=== PATIENT | male | born 1990 | race Caucasian/White ===

== ENCOUNTER 2023-03-07 01:59 | Emergency (ER) | payer MEDICAID, SELFPAY ==
[2023-03-07 02:05] VITALS: BP 132/78; PULSE 98; RESP 18; TEMP 36.7; O2SAT 99; BMI 28.0
--- NOTE | 2023-03-07 02:13 | CRLHL7_ITS ---
For Patients: As a result of the Cures Act, medical imaging exams and procedure reports are released immediately into your electronic medical record. You may view this report before your referring provider. If you have questions, please contact your health care provider. INDICATION: Shoulder pain for 2 days, injury, pain for 2 days, thinks dislocated TECHNIQUE: Shoulder radiograph 3 views right COMPARISON: None FINDINGS: Bone: No acute fractures or aggressive bone lesions are identified. Joint: The glenohumeral joint is unremarkable. The acromioclavicular joint is unremarkable. Soft tissue: Unremarkable. The visualized hemithorax is unremarkable in appearance. No radiopaque foreign bodies are seen. IMPRESSION: 1. No acute osseous injuries or abnormalities are noted. Dictated by: Geovany Bryson MD @ 03/07/2023 02:31:57 (Electronically Signed)
--- NOTE | 2023-03-07 02:15 | ED_ITS ---
HPI - General Adult General Chief complaint: Shoulder Injury/Pain Stated complaint: Right Shoulder Pain Time Seen by Provider: 03/07/23 02:04 Source: patient and family Mode of arrival: ambulatory Limitations: no limitations History of Present Illness HPI narrative: 32-year-old male reports 2 days of right shoulder pain, recently [place] Denies any specific trauma or injury states that he awoke with pain, thinks he might have slept funny on it. Pain has been worsening and now he is unable to move the shoulder. He reports that he has dislocated his shoulder before and has ?popped it back in himself?. He denied numbness or tingling. No difficulty moving the hand. He has not tried any Tylenol, ibuprofen or any other maneuvers. He says that he has tried to pop it back in himself again but has not been successful. He denies shortness of breath, fevers or other systemic symptoms he denies any specific fall or trauma. He denies any prior surgeries to the shoulder. No problems with the neck, elbow wrist or hand on this side, no problems with opposite shoulder. Pain is achy and worse with movement. Past medical history is benign, denies any major long-term health problems. Denies recent surgeries, no prescription medications, no allergies. Denies intoxication tonight. ROS is negative for other generalized, skin, neurological or musculoskeletal illness today. Related Data Home Medications Medication Instructions Recorded Confirmed No Known Home Medications 03/07/23 03/07/23 Allergies Allergy/AdvReac Type Severity Reaction Status Date / Time No Known Drug Allergies Allergy Verified 03/07/23 02:07 [facility] Medical History (Updated 03/07/23 @ 02:40 by Julia Bob MD) No significant past medical history Surgical History (Updated 03/07/23 @ 02:12 by Sylvain Sorto RN) No significant past surgical history Social History Smoking Status: Current every day smoker Second hand tobacco smoke exposure: No How often do you have a drink containing alcohol: never How often do you have six or more drinks on one occasion: Never AUDIT-C Alcohol total score: 0 Non-prescribed substance use: denies use Exam Const: Vital Signs, click to edit/add: Vital Signs - 24 hr 03/07/23 02:05 03/07/23 02:17 Temperature 98.0 F 98.0 F Pulse Rate [Right Pulse Oximeter] 98 Respiratory Rate 18 Blood Pressure [Ri t Upper Arm] 132/78 Pulse Oximetry 99 Oxygen Delivery Me thod Room Air Documenting provider has reviewed patient's vital signs: yes Common normals: no apparent distress Other: A bit standoffish but cooperates with exam. HENMT: Common normals: normocephalic and head/scalp atraumatic Head and scalp: normocephalic and atraumatic Mouth: oral and palatal mucosa normal Throat: posterior oropharynx normal Eye: Common normals: conjunctivae normal General eye: normal appearance of both eyes Conjunctiva: conjunctiva(e) normal Neck & C-Spine: Common normals: full ROM and no lymphadenopathy Resp: Common normals: normal respiratory effort, no use of accessory muscles and clear to auscultation bilaterally Effort & inspection: able to speak in complete sentences Auscultation: clear to auscultation bilaterally Cardio: Common normals: regular rate, regular rhythm, S1 normal heart sound, S2 normal heart sound and no murmurs Rate: regular rate Rhythm: regular rhythm Heart sounds: S1 normal and S2 normal Extremity: Other: Left shoulder with normal range of motion. Right arm with normal credit adjuster strength in hand, normal range of motion of hand, wrist, elbow. He significantly guards the right shoulder but I do not feel any obvious deformity. Scapula border, clavicles and glenohumeral joint without effusion, no gaps or sulcus. No point bony tenderness but he is very hesitant for any movement, will not abduct and allows me very little internal or external rotation. I elect to get an x-ray prior to any more aggressive manipulation. Neuro: Other: Normal strength in hand, normal sensation. Psych: Attitude: calm Activity/motor behavior: appropriate eye contact Insight: fair Judgement: fair Skin: Common normals: no rashes or lesions noted General skin exam: no rashes or lesions noted Course Vital Signs Vital signs: Initial Vital Signs Temperature 98.0 F 03/07/23 02:05 Temperature Source Temporal Artery Scan 03/07/23 02:05 Pulse Rate 98 03/07/23 02:05 Respiratory Rate 18 03/07/23 02:05 Blood Pressure 132/78 03/07/23 02:05 Blood Pressure Mean 96 03/07/23 02:05 Blood Pressure Position Sitting 03/07/23 02:05 Pulse Oximetry 99 03/07/23 02:05 Oxygen Delivery Method Room Air 03/07/23 02:05 Vital Signs Temperature 98.0 F 03/07/23 02:05 Pulse Rate 98 03/07/23 02:05 Respiratory Rate 18 03/07/23 02:05 Blood Pressure 132/78 03/07/23 02:05 Pulse Oximetry 99 03/07/23 02:05 Oxygen Delivery Method Room Air 03/07/23 02:05 Temperature 98.0 F 03/07/23 02:17 Pulse Rate 98 03/07/23 02:05 Respiratory Rate 18 03/07/23 02:05 Blood Pressure 132/78 03/07/23 02:05 Pulse Oximetry 99 03/07/23 02:05 Oxygen Delivery Method Room Air 03/07/23 02:05 Medical Decision Making MDM Narrative Medical decision making narrative: Suspect sprain, possible dislocation. He guards the joint far too much to get a quality exam. Elect for x-ray 1st. Will then repeat exam. He has not taken anything for pain, will start with 800 mg of ibuprofen p.o. x1. Differential diagnosis including labral tear, rotator cuff injury, shoulder, dislocation, sprain. Update: Reviewed x-ray, certainly no dislocation, confirmed with radiology report. Patient is still very hesitant to move the shoulder but I do observe him lifting the arm when he was getting onto the bed and did confirm with the radiology transcriptionist that he did move the arm for the exam. He does not seem to have deep insight into this and does seem to be voluntarily guarding the shoulder. This does limit exam and since there are no signs of neurovascular compromise or severe tendon injury, I recommend pain control and conservative management. Primary care follow-up if not improving in 1 week. Work note given for 24 hours. Imaging Data Shoulder x-ray: Attestation: I have reviewed the pertinent imaging results. My impression: Normal x-ray Radiologist's impression: IMPRESSION: 1. No acute osseous injuries or abnormalities are noted. Discharge Plan Discharge Clinical Impression: Sprain of right shoulder Patient Disposition: Home w/ Parent or Adult Condition: Stable Instructions: Shoulder Sprain (ED) Additional Instructions: No signs of dislocation. You should be moving your arm. Please use appropriate doses of Tylenol and ibuprofen so that you are able to move your arm. Proper dose of ibuprofen is 600 mg every 6 hours. You were given a dose at 2:30 a.m., you may take another dose at 8:30 a.m.. If your pain is not appropriately controlled with this, you should take Tylenol 1000 mg every 6 hours. This is 3 regular tablets or 2 extra-strength, every 6 hours. If your pain is bothersome to the point where you are not moving your shoulder, you are causing your self more harm and delayed healing. Your given a note off of work for today, but you are cleared to return to full duty on Wednesday. Again, please consider taking some Tylenol and or ibuprofen before work. You will need to repeat dosing every 6 hours as discussed when the pain medicine wears off. If it is not improving in another 7 days, I would make an outpatient appointment with a primary care provider for a physical therapy referral. Discharge Diet: Regular Prescriptions: No Action No Known Home Medications Follow Up/Referrals: Efrain Andre MD [Staff Physician] - Stand Alone Forms: [employer] Info Instructions
[2023-03-07 02:17] VITALS: TEMP 36.7
[2023-03-07] MEDS: IBUPROFEN 400 MG TABLET 800 MG PO (02:17)
[2023-03-07] MEDS: CYCLOBENZAPRINE HCL 10 MG TABLET PO (02:41)
[2023-03-07 02:48] VITALS: BP 132/78; PULSE 98; RESP 18; TEMP 36.7
[2023-03-07 02:49] VITALS: BP 128/74; PULSE 88; RESP 18; TEMP 37; O2SAT 99
== END 2023-03-07 02:50 | disposition home or self-care (01) ==
LOC: ED 02:42
PROVIDERS: Emergency Provider Family Medicine
DX: S46.911A Strain of unspecified muscle, fascia and tendon at shoulder and upper arm level, right arm, initial encounter (principal)
CPT/HCPCS: 73030; 99283; A9270